=== PATIENT | female | born 1990 | race Caucasian/White ===

== ENCOUNTER 2019-03-06 06:33 | Inpatient (IN) ==
--- NOTE | 2019-03-01 17:49 | History & Physical Report ---
Date of Service March 01, 2019 Assessment & Plan (1) History of delivery, antepartum: We will plan for repeat section with tubal sterilization. I have discussed informed consent with patient in the office. Options have been answered. Reviewed risks including bleeding, scarring, damage to surrounding tissue. Risk of blood clots or pulmonary complications. Risk of anesthesia. Risk after tubal sterilization of approximately 2-3 per thousand. Risk of tubal regret syndrome. She elects to proceed. She would like, if possible to use the clear drape during section, she would like father baby to announce the sex of the baby, I would like to do skin to skin as soon as possible. History of Present Illness Chief Complaint: Repeat section Primary Care Provider: Marshall Anthony Capp, DO Patient is a 28-year-old -0-0-2 with EDC 03/09/2019. She has a history of section x2. Her is complicated by a questionable two-vessel cord, as meter and service line inspector saw a vessel on either side of the bladder but only 2 vessels in the umbilical cord. We have treated her as if this is a two-vessel cord with echo, serial growth ultrasounds, nonstress test. She also desires permanent tubal sterilization. Allergies Allergy/AdvReac Type Severity Reaction Status Date / Time Penicillins Allergy Mild RASH AND Verified 02/28/19 10:28 ITCHING clindamycin Allergy Unknown Rash Verified 02/28/19 10:28 Sulfa (Sulfonamide Allergy Unknown Rash Verified 02/28/19 10:28 Antibiotics) Home Medications Home Medications Medication Instructions Recorded Confirmed Type prenat.vits,randy,[id number] 1 tab PO HS 11/02/18 02/28/19 History loratadine 10 mg tablet 10 mg PO HS 01/13/19 02/28/19 History albuterol sulfate 90 mcg/actuation 1 puffs INH Q6H PRN 01/27/19 02/28/19 History aerosol inhaler Iron Glycinate 1 tab PO HS 02/27/19 02/28/19 History acetaminophen [Tylenol Extra 500 mg PO Q6H PRN 02/27/19 02/28/19 History Strength] ranitidine HCl [Zantac] 150 mg PO HS 02/27/19 02/28/19 History Patient History Medical History (Updated 02/27/19 @ 08:43 by Janine Christianson RN) GERD (gastroesophageal reflux disease) History of decreased movements History of joint pain both knees History of prolonged History of varicella vaccination 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, antepartum UTI (urinary tract infection) Social History Preferred Language: American Communication Ability: Effective Enrollment Processor Required: No Beliefs That Will Affect Care: None marital status: Current Living Situation: Spouse and Family Current Living Situation Comment: spouse and children Feels Safe at Home: Yes Smoking Status: Never smoker Second Hand Exposure: No ; Hx Alcohol Use: Yes Alcohol type: beer, wine and other Hx Substance Use: No Review of Systems All systems reviewed & are unremarkable except as noted in HPI & below Physical Exam Constitutional: WD/WN, vitals as above Respiratory: normal respiratory effort, lungs clear to auscultation no respiratory distress Cardiovascular: Rate/Rhythm: regular rate and regular rhythm Gastrointestinal (Abdomen): Inspection/Auscultation: abdomen normal to inspection Percussion/Palpation: abdomen soft; abdomen nontender Gravid. No s/s chorio or abruption. Skin: no rashes, warm and dry Psychiatric: A+Ox3, euthymic affect
[~2019-03-06 06:33] MED LIST: CEFAZOLIN 3,000 MG in DEXTROSE 5% 50 ML IV SCH; CITRIC ACID/SODIUM CITRATE 15 ML UDC PO SCH; LACTATED RINGER'S 1,000 ML IV SCH
[2019-03-06 07:18] LABS: Basophils # (auto) 0.04 K/uL (0-0.2); Basophils % (auto) 0.4 %; Eosinophils # (auto) 0.16 K/uL (0-0.5); Eosinophils % (auto) 1.7 %; Hematocrit (blood only) 39.2 % (37-47); Hemoglobin 13.4 g/dL (12.0-16.0); Immature Granulocytes # (auto) 0.19 K/uL (0.00-0.02); Lymphocytes % (auto) 24.7 %; Mean Corpuscular Hemoglobin 29.5 pg (25-34); Mean Corpuscular Volume 86.2 fL (80-100); Mean Platelet Volume 9.5 fL (7.4-10.4); Monocytes # (auto) 1.02 K/uL (0.11-0.59); Neutrophils % (auto) 60.2 %; Platelet Count 280 K/uL (130-400); RDW Coefficient of Variation 13.2 % (11.5-14.5); RDW Standard Deviation 41.1 fL (36.4-46.3); Red Blood Count 4.55 M/uL (4.2-5.4); White Blood Count 9.31 K/uL (4.8-10.8)
[2019-03-06 07:24] LABS: Mean Corpuscular Hgb Conc 34.2 g/dL (32-36)
[2019-03-06] MEDS ORDERED: LACTATED RINGER'S 1,000 ML IV SCH ×3 (08:15→15:00)
--- NOTE | 2019-03-06 09:04 | History & Physical Bridge Note ---
Date of Service March 06, 2019 History & Physical Bridge Note I have examined the patient, reviewed the History & Physical and in the interval since the performance of the History & Physical I have noted the following changes of clinical significance: no changes noted
[2019-03-06] MEDS ORDERED: OXYTOCIN 10 UNITS/ML VIAL ONE (09:37)
[2019-03-06] MEDS ORDERED: fentaNYL citrate 100 MCG/2 ML VIAL ONE (09:37)
[2019-03-06] MEDS ORDERED: MoRPHine SULFATE PF 1 MG/ML 10 ML AMP/VIAL ONE (09:37)
[2019-03-06] MEDS ORDERED: HYDROmorphone INJ 0.5 MG/0.5 ML SYR IV PRN (09:52)
[2019-03-06] MEDS ORDERED: ONDANSETRON INJ 2 MG/ML 2 ML VIAL IV PRN (09:52)
[2019-03-06] MEDS ORDERED: DiphenhydrAMINE HCL 50 MG/ML VIAL IV PRN (09:52)
[2019-03-06] MEDS ORDERED: NALOXONE HCL 1 MG in SODIUM CHLORIDE 0.9% 1000ML 1,000 ML IV PRN (09:52)
[2019-03-06] MEDS ORDERED: ePHEDrine sulfate 50 MG/ML AMP IV PRN (09:52)
[2019-03-06] MEDS ORDERED: LACTATED RINGER'S 500 ML IV PRN (09:52)
[2019-03-06] MEDS ORDERED: NALOXONE HCL 0.08 MG in SYRINGE 1.8 ML IV PRN (09:52)
[2019-03-06] MEDS ORDERED: MoRPHine SULFATE PF 1 MG/ML 10 ML AMP/VIAL INT SPINAL ONE (09:52)
[2019-03-06] MEDS ORDERED: NALOXONE HCL 0.4 MG/1 ML VIAL/CARP IV PRN (09:52)
[2019-03-06] MEDS ORDERED: NALBUPHINE HCL INJ 10 MG/ML AMP IV PRN (09:52)
--- NOTE | 2019-03-06 09:52 | Anesthesiology Consultation ---
Date of Service March 06, 2019 Assessment & Plan ASA ASA2 Proposed Anesthesia Anesthesia Type: Spinal Risk / Benefits Reviewed With: PT / POA / Parent / Guardian, Accepts Plan and Informed Consent Obtained History Surgery Operation Date: 03/06/19 09:10 Proposed Procedures p Section, with - Anette Sorto DO s Post Tubal Ligation - Anette Sorto DO Height/Weight Height: 5 ft 4.5 in Weight: 103.419 kg Allergies Allergy/AdvReac Type Severity Reaction Status Date / Time Penicillins Allergy Mild RASH AND Verified 02/28/19 10:28 ITCHING clindamycin Allergy Unknown Rash Verified 02/28/19 10:28 Sulfa (Sulfonamide Allergy Unknown Rash Verified 02/28/19 10:28 Antibiotics) Medications Home Medications Medication Instructions Recorded Confirmed Last Taken prenat.vits,randy,[id number] 1 tab PO HS 11/02/18 03/06/19 03/05/19 23:00 1 loratadine 10 mg tablet 10 mg PO HS 01/13/19 03/06/19 03/05/19 23:00 1 albuterol sulfate 90 mcg/actuation 1 puffs INH Q6H PRN 01/27/19 03/06/19 02/03/19 21:00 aerosol inhaler 1 Iron Glycinate 1 tab PO HS 02/27/19 03/06/19 03/04/19 22:00 1 acetaminophen [Tylenol Extra 500 mg PO Q6H PRN 02/27/19 03/06/19 02/27/19 21:00 Strength] ranitidine HCl [Zantac] 150 mg PO HS 02/27/19 03/06/19 03/05/19 23:00 1 NPO Date Last Intake of Fluids: 03/06/19 Time Last Intake of Fluids: 00:00 Date Last Intake of Solids: 03/06/19 Time Last Intake of Solids: 00:00 Past Medical History Medical History GERD (gastroesophageal reflux disease) History of decreased movements History of joint pain both knees History of prolonged History of varicella vaccination 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, antepartum UTI (urinary tract infection) Exercise / Class Metabolic Activity II 4-5 Yardwork/Stairs/Walk up hill Past Family History Family History Aunt Diabetes maternal Mother Endometriosis Grandmother (Maternal) Hypertension Grandfather (Paternal) Prostate cancer Daughter Heart murmur Past Surgical History Surgical History History of low transverse section x 2, extension for 6cm into vagina Past Anesthesia History No Hx of Anesthesia Complications and No Family Hx of Anesthesia Complications History of PONV No Hx of PONV and No Hx of Motion Sickness Social History Smoking Status: Never smoker Do You Dip or Chew Tobacco: No Hx Alcohol Use: No Alcohol type: beer, wine and other alcohol intake frequency: a few times a month Alcohol Intake Frequency Comment: NONE Hx Substance Use: No Review of Systems denies fever/cough/ colds/ chest pain/ SOB/ WILIAN denies OK/CVA/Seizure Physical Exam Vital Signs Last Vital Signs Temp 36.9 C 03/06/19 07:01 Pulse 114 H 03/06/19 06:49 Resp 20 03/06/19 07:01 BP 115/76 03/06/19 06:49 ENMT Mouth: + chipped teeth; no TMJ abnormality and no dentition abnormality Thyromental Distance: > or= 3.5 Finger Breadths Mallampati Class: II Neck neck extension not limited Respiratory normal respiratory effort; no respiratory distress Auscultation: lungs clear to auscultation bilaterally Cardiovascular Rate/Rhythm: regular rate and regular rhythm Neurologic moves all extremities Psychiatric Orientation: alert and oriented x 3 Testing Laboratory Results 03/06/19 06:58 Blood Type O Positive 03/06/19 06:56 Antibody Screen NEGATIVE 03/06/19 06:56
[2019-03-06] MEDS ORDERED: DC INTRASPINAL MORPHINE SCH (10:00)
[2019-03-06] MEDS ORDERED: SODIUM CHLORIDE 0.9% 1000ML 1,000 ML IV SCH (10:00)
[2019-03-06] MEDS ORDERED: NO NARCOTICS OR SEDATIVES SCH (10:00)
[2019-03-06] MEDS ORDERED: ePHEDrine sulfate 50 MG/ML SYR ONE (11:03)
[2019-03-06] MEDS ORDERED: PHENYLEPHRINE 100MCG/ML 5ML SYR ONE (11:03)
[2019-03-06] MEDS ORDERED: KETOROLAC 30 MG/ML VIAL ONE ×3 (11:39→13:20)
[2019-03-06 11:53] LABS: Base Excess Cord Venous Blood -1.2 mEq/L (-7.7-1.9); Cord Venous Blood HCO3 25 mmol/L (18.4-26.8); Cord Venous Blood PCO2 45 mmHg (30.4-57.2); Cord Venous Blood PO2 22 mmHg (14.1-43.3); Cord Venous Blood pH 7.36 (7.20-7.44)
[2019-03-06 11:54] LABS: O2 Saturation Cord Venous Bld < 60.0 % (<68)
--- NOTE | 2019-03-06 12:44 | Operative Report ---
PG Post Operative Report Pre & Post Diagnosis Operation Date: 03/06/19 09:10 Pre-Op Diagnosis: PREVIOUS SECTION, DESIRES STERILIZATION Post-Op Diagnosis: PREVIOUS SECTION, DESIRES STERILIZATION; LOW TRANSVERSE SECTION WITH T EXTENSION; DELIVERY OF LIVE FEMALE AT 1119; BILATERAL TUBAL LIGATION I identified the patient and participated in the time-out.: Yes Procedure Operation Date: 03/06/19 09:10 Actual Procedures p Low Transverse Section with T-extension, with - Anette Sorto DO s Tubal Ligation - Anette Sorto DO Surgeon Anette Sorto, Treasury Accountant Henrique Smith MD PGY1 Estimated Blood Loss 700 Findings Consistent with Post-Op Diagnosis Viable female , Apgars 8/9 Weight 7#3.6oz. Double hand presentation at uterine incision, requiring T-extension to retract hands and deliver baby from cephalic presentation Specimens Placenta, cord gas, cord blood. Drains stevens catheter, clear yellow Anesthesia Type Spinal Complications none Disposition Accompanied Patient To Recovery: Yes Disposition: L&D Indications 28yo @ 39 4/7 with h/o section x 2, desire for tubal sterilization Description of Procedure The patient was seen in the preoperative holding area, risks benefits and alternatives to surgery were reviewed. Questions were answered. She previously signed informed consent under no duress in the office. She elected to proceed with the case. She was taken to the operating room, spinal anesthesia was administered. She is prepared and draped in the usual sterile fashion in the supine position with a leftward tilt. Anesthesia was found to be adequate. She received 3 g of Ancef preoperatively. Timeout was confirmed. The Pfannenstiel skin incision was made with a scalpel, and carried through to the underlying layer fascia. This was nicked at midline, and extended bilaterally sharply and bluntly. The superior aspect of the fascial incision was grasped with [place] clamps x2, elevated off the underlying rectus abdominis muscles, and dissected bluntly and sharply. In a similar fashion, the inferior aspect of the incision was dissected. The rectus abdominis muscles were in the regimen was entered sharply. This incision was extended bluntly. Bladder blade was placed, a bladder flap was created. A low transverse uterine incision was made with a new scalpel. This is extended bilaterally bluntly. At this point, 's hands attempted to deliver through the hysterotomy incision. In attempt to return the 's hands to the uterine cavity, the baby was rotated to a occiput anterior position to better facilitate delivery. A Kiwi vacuum was applied to the head, 2 pop offs and delivery attempts. Bandage scissors were used to extend the superior aspect of the hysterotomy incision into a T. This brought the head to the hysterotomy incision, and allow the baby to deliver from a cephalic presentation. No nuchal cord was noted. The cord was doubly clamped and cut, a segment was retained for cord gases, the infant's nose and mouth were suctioned on the field, and the baby was handed off to the waiting refinery technician. Placenta was delivered spontaneously intact, and will be sent to pathology for further evaluation. Uterus was then exteriorized and cleared of clots and debris. The T extension was reapproximated using 3 layers of 0 Vicryl. The first layer incorporating the innermost 50% of the myometrium, the second layer the outer 50% of the myometrium, and the third layer as a baseball stitch reapproximating uterine serosa. Next, the hysterotomy incision was reapproximated using 0 Vicryl in a running locked stitch. A second layer of the same suture was used to imbricate the incision. Multiple [id number] sutures of 0 Vicryl and 2-0 Vicryl were used to obtain hemostasis. There were multiple hyper vascularized areas of the uterus that required multiple stitches to obtain hemostasis. The posterior uterus was inspected, found to be normal. The bilateral tubal ligation was performed using Filshie clips, due to the thickness of the tube, I do not feel that the first clip really grasp the entirety of the tube, therefore I placed a second Filshie clip on each fallopian tube. The uterus was placed back inside the abdomen, and no active bleeding areas were noted, however due to multiple small areas of oozing, Robin powder was used and pressure applied. Hemostasis was observed with this. A large piece of Gelfoam was then placed into the cavity over top of the hysterotomy incision to further aid with hemostasis. Gutters were cleared of clots and debris. The fascial incision was reapproximated using 0 Vicryl in a running stitch. This was started at each apex and carried to the midline. The subcutaneous tissue was irrigated, and reapproximated with 2-0 plain gut suture in a single running stitch. The skin was reapproximated using 4-0 Vicryl in a running subcuticular stitch. Patient tolerated the procedure well, was taken to recovery area in stable good condition. I attest to the content of the Intraoperative Record and any orders documented therein. Any exceptions are noted below.
[2019-03-06] MEDS ORDERED: KETOROLAC 30 MG/ML VIAL IV PRN (13:21)
--- NOTE | 2019-03-06 14:09 | Anesthesiology Progress Note ---
Date of Service March 06, 2019 Anesthesia Post Procedure Vital Signs Vital Signs: Temp Pulse Pulse Resp BP Pulse Ox 03/06/19 14:03 100 H 98 03/06/19 13:58 90 99 03/06/19 13:53 93 H 98 03/06/19 13:48 93 H 99 03/06/19 13:43 91 H 98 03/06/19 13:39 86 135/68 03/06/19 13:38 93 H 98 03/06/19 13:33 86 97 03/06/19 13:29 87 121/69 03/06/19 13:28 90 97 03/06/19 13:23 106 H 97 03/06/19 13:19 93 H 129/79 03/06/19 13:18 98 H 97 03/06/19 13:13 92 H 96 03/06/19 13:10 109 H 92 03/06/19 13:09 99 H 121/67 03/06/19 13:08 98 H 100 03/06/19 13:03 96 H 99 03/06/19 12:59 85 115/59 L 03/06/19 12:58 94 H 98 03/06/19 12:57 89 93 03/06/19 12:53 94 H 100 03/06/19 12:49 82 110/61 03/06/19 12:48 88 98 03/06/19 12:43 90 98 03/06/19 12:39 36.3 C L 97 H 97 H 20 117/66 99 03/06/19 07:01 36.9 C 20 03/06/19 06:49 114 H 115/76 Pain Intensity Lower Abdomen: Pain Intensity: 0 Transfer of Care Handoff Completed per policy Notes Mental Status: alert / awake / arousable and participated in evaluation Patient Amnestic to Procedure: Yes Nausea / Vomiting: adequately controlled Pain: adequately controlled Airway Patency, RR, SpO2: stable & adequate BP & HR: stable & adequate Hydration State: stable & adequate Neuraxial Anesthesia: was administered and sensory block is resolving Anesthetic Complications: no major complications apparent and Pt Satisfied with anesthetic care
[2019-03-06] MEDS ORDERED: ALBUTEROL HFA 8 GM INHALER INH PRN (14:33)
[2019-03-06] MEDS ORDERED: BENZOCAINE 20% AER SPR 82.5 GM CAN EXT PRN (14:33)
[2019-03-06] MEDS ORDERED: SUPERCREAM 0.870% 15 GM JAR EXT PRN (14:33)
[2019-03-06] MEDS ORDERED: MAGNESIUM HYDROXIDE SUSP 30 ML UDC PO PRN (14:33)
[2019-03-06] MEDS ORDERED: HYDROCORTISONE ACETATE 25 MG SUPP PR PRN (14:33)
[2019-03-06] MEDS ORDERED: DIPHTHERIA/TETANUS/PERTUSSIS 0.5 ML SYR/VIAL IM ONE (14:33)
[2019-03-06] MEDS ORDERED: ACETAMINOPHEN 1,000 MG/100 ML VIAL IV PRN (14:57)
[2019-03-06 15:03] LABS: Hematocrit (blood only) 35.5 % (37-47)
[2019-03-06 15:09] LABS: Base Excess VBG -1.4 mEq/L; pH VBG 7.44 (7.36-7.41)
[2019-03-06] MEDS: OXYTOCIN 30 UNITS in LACTATED RINGER'S 1,000 ML IV SCH ×2 (15:21→23:43)
[2019-03-06] MEDS: SIMETHICONE 80 MG CHEW PO SCH ×2 (18:31→20:37)
[2019-03-06] MEDS: LORATADINE 10 MG TAB PO SCH (20:37)
[2019-03-06] MEDS: DOCUSATE SODIUM 100 MG CAP PO SCH (20:37)
[2019-03-07] MEDS ORDERED: KETOROLAC 30 MG/ML VIAL IV PRN (03:52)
[2019-03-07] MEDS ORDERED: ONDANSETRON INJ 2 MG/ML 2 ML VIAL IV PRN (03:52)
[2019-03-07] MEDS ORDERED: PROMETHAZINE HCL 25 MG in SODIUM CHLORIDE 0.9% 50 ML IV PRN (03:52)
[2019-03-07] MEDS ORDERED: DiphenhydrAMINE HCL 50 MG/ML VIAL IV PRN (03:52)
--- NOTE | 2019-03-07 04:13 | Obstetrical Progress Note ---
Date of Service March 07, 2019 Subjective Patient is awake in room . Feels like she has a slight cough, no chest pain. She has not been coughing, even though she feels she needs to, as she is worried about it hurting her incision. Otherwise, she states she feels well. Pulse is tachycardic, 120. BP is 94/57. Temp 37.9. O2 saturation 99%. Incision is bandaged, clean/dry. Lung sounds clear. Abdomen soft. Urine output 900cc over 9 hours, somewhat concentrated. Will obtain stat CBC with diff at this time. Patient will also use incentive spirometer - encouraged her to hold pillow to abdomen to cough. Results & Data Vital Signs (Past 12 Hours) Vital Signs Temp Pulse Resp BP Pulse Ox 03/07/19 00:00 18 96 03/06/19 23:35 37.3 C 118 H 18 108/60 96 03/06/19 23:00 18 96 03/06/19 22:00 18 98 03/06/19 21:00 18 100 03/06/19 20:42 36.7 C 114 H 18 117/71 100 03/06/19 20:00 18 100 03/06/19 19:00 20 98 03/06/19 18:00 20 98 03/06/19 17:00 20 98 PG Care Time/CCT Total # of Minutes Spent Total Time Spent with Patient: Total time spent is greater than 50% in coordination of care (as documented) at patient's floor/unit and/or counseling patient:
[2019-03-07 04:37] LABS: Basophils # (auto) 0.02 K/uL (0-0.2); Basophils % (auto) 0.1 %; Eosinophils # (auto) 0.02 K/uL (0-0.5); Eosinophils % (auto) 0.1 %; Hematocrit (blood only) 30.6 % (37-47); Hemoglobin 10.4 g/dL (12.0-16.0); Immature Granulocytes % (auto) 0.6 %; Lymphocytes # (auto) 1.56 K/uL (1.2-3.4); Mean Corpuscular Hemoglobin 29.5 pg (25-34); Mean Corpuscular Volume 86.9 fL (80-100); Monocytes # (auto) 1.35 K/uL (0.11-0.59); Monocytes % (auto) 8.7 %; Neutrophils # (auto) 12.51 K/uL (1.4-6.5); Neutrophils % (auto) 80.5 %; Platelet Count 214 K/uL (130-400); RDW Coefficient of Variation 13.4 % (11.5-14.5); RDW Standard Deviation 42.4 fL (36.4-46.3); Red Blood Count 3.52 M/uL (4.2-5.4); White Blood Count 15.56 K/uL (4.8-10.8)
--- NOTE | 2019-03-07 05:45 | Obstetrical Progress Note ---
Date of Service <Henrique Smith MD - Last Filed: 03/07/19 07:29> March 07, 2019 Assessment & Plan <Henrique Smith MD - Last Filed: 03/07/19 07:29> (1) : s/p RLTCS PPD #1 concern for hypovolemia given tachycardia, hypotensive, with trending down hgb continue to monitor H/H throughout the day ambulate as tolerated continue IV fluids until patient has improved PO intake after discharge will have follow-up with Dr. Sorto in 6 weeks Subjective <Henrique Smith MD - Last Filed: 03/07/19 07:29> Ms. Resendiz is a 28 y/o female ; POD #1 following delivery at 39+ weeks; doing well this morning; having abdominal pain with all motion; voiding well; did not have meals overnight, or ambulate around room Review of Systems Constitutional: denies fever; chills; sweats; headache Respiratory: denies shortness of breath, difficulty breathing Cardiac: denies typical chest pain; palpitations; Breast: denies breast pain : denies dysuria Physical Exam <Henrique Smith MD - Last Filed: 03/07/19 07:29> General: alert; oriented; no acute distress Cardiac: RRR; no m/g/r Respiratory: CTAB a/p; no wheezes/rales/rhonchi; no increased work of breathing; symmetrical chest rise; no respiratory distress Abdomen: soft; bowel sounds positive; incision warm/dry, and intact without erythema or exudate; suprapubic tenderness Uterus: uterine fundus firm; palpable 2cm below umbilicus Lower extrem: no lower extremity edema or swelling; no deep calf pain; Debra's sign negative b/l Results & Data <Henrique Smith MD - Last Filed: 03/07/19 07:29> Vital Signs (Past 12 Hours) Vital Signs Temp Pulse Resp BP Pulse Ox 03/07/19 04:00 37.9 C H 120 H 18 94/57 L 98 03/07/19 03:00 18 99 03/07/19 02:00 18 97 03/07/19 01:00 18 98 03/07/19 00:00 18 96 03/06/19 23:35 37.3 C 118 H 18 108/60 96 03/06/19 23:00 18 96 03/06/19 22:00 18 98 03/06/19 21:00 18 100 03/06/19 20:42 36.7 C 114 H 18 117/71 100 03/06/19 20:00 18 100 03/06/19 19:00 20 98 03/06/19 18:00 20 98 Laboratory Results 03/07/19 03/06/19 03/06/19 Range/Units 04:24 14:47 14:47 WBC 15.56 H (4.8-10.8) K/uL RBC 3.52 L (4.2-5.4) M/uL Hgb 10.4 L 12.0 (12.0-16.0) g/dL Hct 30.6 L 35.5 L (37-47) % MCV 86.9 (80-100) fL MCH 29.5 (25-34) pg MCHC 34.0 (32-36) g/dL RDW Std Deviation 42.4 (36.4-46.3) fL RDW Coeff of Torin 13.4 (11.5-14.5) % Plt Count 214 (130-400) K/uL MPV 9.0 (7.4-10.4) fL Immature Gran % (Auto) 0.6 % Neut % (Auto) 80.5 % Lymph % (Auto) 10.0 % [place] % (Auto) 8.7 % Eos % (Auto) 0.1 % Baso % (Auto) 0.1 % Immature Gran # (Auto) 0.10 H (0.00-0.02) K/uL Neut # (Auto) 12.51 H (1.4-6.5) K/uL Lymph # (Auto) 1.56 (1.2-3.4) K/uL [place] # (Auto) 1.35 H (0.11-0.59) K/uL Eos # (Auto) 0.02 (0-0.5) K/uL Baso # (Auto) 0.02 (0-0.2) K/uL VBG pH 7.44 H (7.36-7.41) VBG pCO2 33 L (38-50) mmHg VBG pO2 61 mmHg VBG HCO3 22 mmol/L VBG O2 Saturation 91.0 % VBG Base Excess -1.4 mEq/L Cord VBG pH (7.20-7.44) Cord VBG pCO2 (30.4-57.2) mmHg Cord VBG pO2 (14.1-43.3) mmHg Cord VBG HCO3 (18.4-26.8) mmol/L Cord VBG Base Excess (-7.7-1.9) mEq/L Cord VBG O2 Sat (<68) % Barometric Pressure 724.7 mm/Hg Blood Gas Comments Blood Type Antibody Screen 03/06/19 03/06/19 03/06/19 Range/Units 11:19 06:58 06:56 WBC 9.31 (4.8-10.8) K/uL RBC 4.55 (4.2-5.4) M/uL Hgb 13.4 (12.0-16.0) g/dL Hct 39.2 (37-47) % MCV 86.2 (80-100) fL MCH 29.5 (25-34) pg MCHC 34.2 (32-36) g/dL RDW Std Deviation 41.1 (36.4-46.3) fL RDW Coeff of Torin 13.2 (11.5-14.5) % Plt Count 280 (130-400) K/uL MPV 9.5 (7.4-10.4) fL Immature Gran % (Auto) 2.0 % Neut % (Auto) 60.2 % Lymph % (Auto) 24.7 % [place] % (Auto) 11.0 % Eos % (Auto) 1.7 % Baso % (Auto) 0.4 % Immature Gran # (Auto) 0.19 H (0.00-0.02) K/uL Neut # (Auto) 5.60 (1.4-6.5) K/uL Lymph # (Auto) 2.30 (1.2-3.4) K/uL [place] # (Auto) 1.02 H (0.11-0.59) K/uL Eos # (Auto) 0.16 (0-0.5) K/uL Baso # (Auto) 0.04 (0-0.2) K/uL VBG pH (7.36-7.41) VBG pCO2 (38-50) mmHg VBG pO2 mmHg VBG HCO3 mmol/L VBG O2 Saturation % VBG Base Excess mEq/L Cord VBG pH 7.36 (7.20-7.44) Cord VBG pCO2 45 (30.4-57.2) mmHg Cord VBG pO2 22 (14.1-43.3) mmHg Cord VBG HCO3 25 (18.4-26.8) mmol/L Cord VBG Base Excess -1.2 (-7.7-1.9) mEq/L Cord VBG O2 Sat < 60.0 (<68) % Barometric Pressure 724.4 mm/Hg Blood Gas Comments DAVE Blood Type O Positive Antibody Screen NEGATIVE <Anette Sorto DO - Last Filed: 03/07/19 08:23> Co-Signing Physician Notes Resident Physician Supervision Note: I was present with Dr. Smith during the history and exam. I discussed the case with the resident and agree with the findings and plan as documented in the note. Any exceptions or clarifications are listed here: POD#1. Awake, feeling well. Urine output has been adequate, but concentrated-appearing. This has improved in color since IV fluid bolus given early this morning. BP has improved, pulse still tachycardic. Awaiting H/H this morning. Respirations and pulse ox remain normal. Documented By: Anette Sorto DO Resident Activity Tracking <Henrique Smith MD - Last Filed: 03/07/19 07:29> Resident Involvement: Resident Care Provided Care Provided: OB Delivery
[2019-03-07] MEDS ORDERED: CITRIC ACID/SODIUM CITRATE 15 ML UDC PO SCH (06:00)
[2019-03-07] MEDS ORDERED: LACTATED RINGER'S 500 ML IV ONE (06:08)
--- NOTE | 2019-03-07 06:09 | Obstetrical Progress Note ---
Date of Service March 07, 2019 Subjective Patient feeling ok - awake, talking. No bleeding at incision site or per vagina. Has not been out of bed yet. Pulse remains tachycardic, BP is low. Hgb at 4:24a was 10.4 (down from 13.4 prior to CS). Has had adequate urine output overnight, but this is concentrated. Will plan for repeat Hgb at 8a. Will give IV fluid bolus, as this could be dehydration combined with volume loss. Will keep stevens in place to monitor urine output and will recheck in 1 hour. Temp is below 38 degrees, and she has not been febrile. Pulse ox is 99% on room air, do not suspect blood clot. However, if cough continues after she is up and moving, could consider CXR. Results & Data Vital Signs (Past 12 Hours) Vital Signs Temp Pulse Resp BP Pulse Ox 03/07/19 04:00 37.9 C H 120 H 18 94/57 L 98 03/07/19 03:00 18 99 03/07/19 02:00 18 97 03/07/19 01:00 18 98 03/07/19 00:00 18 96 03/06/19 23:35 37.3 C 118 H 18 108/60 96 03/06/19 23:00 18 96 03/06/19 22:00 18 98 03/06/19 21:00 18 100 03/06/19 20:42 36.7 C 114 H 18 117/71 100 03/06/19 20:00 18 100 03/06/19 19:00 20 98 PG Care Time/CCT Total # of Minutes Spent Total Time Spent with Patient: Total time spent is greater than 50% in coordination of care (as documented) at patient's floor/unit and/or counseling patient:
[2019-03-07] MEDS: PRENATAL VITAMIN 1 TAB PO SCH (08:06)
[2019-03-07] MEDS: FERROUS SULFATE 325 MG TAB PO SCH (08:07)
[2019-03-07] MEDS: DOCUSATE SODIUM 100 MG CAP PO SCH ×2 (08:07→21:24)
[2019-03-07] MEDS: SIMETHICONE 80 MG CHEW PO SCH ×4 (08:09→21:24)
[2019-03-07 08:32] LABS: Hemoglobin 10.2 g/dL (12.0-16.0)
[2019-03-07] MEDS: IBUPROFEN 600 MG TAB PO PRN ×4 (10:40→23:59)
[2019-03-07] MEDS: OXYCODONE/ACETAMINOPHEN 5mg/325mg TAB PO PRN ×2 (19:35→23:59)
[2019-03-07] MEDS ORDERED: bisacodyL 5 MG TABEC PO SCH (20:00)
[2019-03-07] MEDS: LORATADINE 10 MG TAB PO SCH (21:24)
--- NOTE | 2019-03-08 06:14 | Obstetrical Progress Note ---
Date of Service <Henrique Smith MD - Last Filed: 03/08/19 07:02> March 08, 2019 Assessment & Plan <Henrique Smith MD - Last Filed: 03/08/19 07:02> (1) : s/p RLTCS P0D #2 ambulating well, tolerating meals, voiding well continue routine care until discharge after discharge will have follow-up with Dr. Sorto in 6 weeks Subjective <Henrique Smith MD - Last Filed: 03/08/19 07:02> Ms. Resendiz is a 28 y/o female ; POD #2 following delivery at 39+ weeks; doing well this morning; having abdominal pain with all motion; voiding well; did not have meals overnight, or ambulate around room Review of Systems Constitutional: denies fever; chills; sweats; headache Respiratory: denies shortness of breath, difficulty breathing Cardiac: denies chest pain; palpitations; chest pressure Breast: denies breast pain : denies dysuria Physical Exam <Henrique Smith MD - Last Filed: 03/08/19 07:02> General: alert; oriented; no acute distress Cardiac: RRR; no m/g/r Respiratory: CTAB a/p; no wheezes/rales/rhonchi; no increased work of breathing; symmetrical chest rise; no respiratory distress Abdomen: soft; NT/ND; bowel sounds positive Uterus: uterine fundus firm; palpable 3cm below umbilicus Lower extrem: no lower extremity edema or swelling; no deep calf pain; Debra's sign negative b/l Results & Data <Henrique Smith MD - Last Filed: 03/08/19 07:02> Vital Signs (Past 12 Hours) Vital Signs Temp Pulse Resp BP Pulse Ox 03/08/19 04:55 92 H 100/65 03/07/19 23:20 36.6 C 101 H 16 124/78 98 03/07/19 19:25 36.9 C 114 H 18 105/69 Laboratory Results 03/08/19 03/07/19 Range/Units 06:15 08:14 Hgb 9.1 L 10.2 L (12.0-16.0) g/dL Hct 27.6 L 30.0 L (37-47) % Medications Administered Current Inpatient Medications Albuterol (Ventolin Hfa) 1 puffs INH Q6H PRN PRN Reason: Wheezing Stop: 04/05/19 14:32 Benzocaine (Dermoplast Pain Relieving Washam) 1 appln EXT UD PRN PRN Reason: use on skin as needed Stop: 04/05/19 14:32 Bisacodyl (Dulcolax) 10 mg MS PRN PRN PRN Reason: Constipation Stop: 04/07/19 12:19 Cocaine HCl (Supercream 0.870%) 1 gm EXT UD PRN PRN Reason: hemmorrhoidal inflammation Stop: 03/20/19 14:32 Diphenhydramine HCl (Benadryl Capsule) 25 mg PO QID PRN PRN Reason: Itching Stop: 04/06/19 03:51 Diphenhydramine HCl (Benadryl) 25 mg IV QID PRN PRN Reason: Itching Stop: 04/06/19 03:51 Docusate Sodium (Colace) 100 mg PO DAILY@08,21 [facility] Stop: 04/05/19 20:59 Last Admin: 03/07/19 21:24 Dose: 100 mg Documented by: Ferrous Sulfate (Feosol) 325 mg PO DAILY@08 [facility] Stop: 04/06/19 07:59 Last Admin: 03/07/19 08:07 Dose: 325 mg Documented by: Hydrocortisone (Anusol Hc) 25 mg MS BID PRN PRN Reason: Hemorrhoids Stop: 04/05/19 14:32 Lactated Ringer's (Lr) 1,000 mls @ 125 mls/hr IV .Q8H RAFAEL Stop: 04/05/19 14:59 Last Infusion: 03/07/19 11:45 Dose: 0 mls/hr Documented by: Promethazine HCl 25 mg/ Sodium (Chloride) 51 mls @ 204 mls/hr IV Q4H PRN PRN Reason: Nausea And Vomiting Stop: 04/06/19 03:51 Acetaminophen (Ofirmev) 1,000 mg in 100 mls @ 400 mls/hr IV Q8H PRN PRN Reason: Moderate Pain Stop: 03/09/19 14:56 Ibuprofen (Motrin) 600 mg PO Q4H PRN PRN Reason: Pain Stop: 04/05/19 14:32 Last Admin: 03/07/19 23:59 Dose: 600 mg Documented by: Ketorolac Tromethamine (Toradol) 30 mg IV Q6H PRN PRN Reason: Pain Stop: 03/12/19 03:51 Last Admin: 03/07/19 07:28 Dose: 30 mg Documented by: Loratadine (Claritin) 10 mg PO HS [facility] Stop: 04/05/19 20:59 Last Admin: 03/07/19 21:24 Dose: 10 mg Documented by: Magnesium Hydroxide (Milk Of Magnesia) 30 ml PO HS PRN PRN Reason: Constipation Stop: 04/05/19 14:32 Ondansetron HCl (Zofran) 4 mg IV Q4H PRN PRN Reason: Nausea And Vomiting Stop: 04/06/19 03:51 Oxycodone/Acetaminophen (Percocet 5mg/325mg) 1 - 2 tab PO Q4H PRN PRN Reason: Pain Stop: 03/21/19 03:51 Last Admin: 03/07/19 23:59 Dose: 1 tab Documented by: Prenat Multivit/[place]/Iron/Folic Ac ( Vitamin) 1 tab PO DAILY@08 [facility] Stop: 04/06/19 07:59 Last Admin: 03/07/19 08:06 Dose: 1 tab Documented by: Ranitidine HCl (Zantac) 150 mg PO HS [facility] Stop: 04/05/19 20:59 Last Admin: 03/07/19 21:24 Dose: 150 mg Documented by: Simethicone (Mylicon) 80 mg PO DAILY@08,13,17,21 [facility] Stop: 04/05/19 14:32 Last Admin: 03/07/19 21:24 Dose: 80 mg Documented by: <Glenna Chi MD, FACOG - Last Filed: 03/08/19 08:06> Co-Signing Physician Notes Resident Physician Supervision Note: I interviewed and examined the patient. Discussed with Dr. Smith and agree with findings and plan as documented in the note. Any exceptions or clarifications are listed here:Patient is requesting script for ranitidine but since it is unavailable now, she will try omeprazole instead. Documented By: Glenna Chi MD, FACOG Resident Activity Tracking <Henrique Smith MD - Last Filed: 03/08/19 07:02> Resident Involvement: Resident Care Provided Care Provided: OB Delivery
[2019-03-08 06:37] LABS: Hematocrit (blood only) 27.6 % (37-47); Hemoglobin 9.1 g/dL (12.0-16.0)
[2019-03-08] MEDS: SIMETHICONE 80 MG CHEW PO SCH ×2 (08:31→12:51)
[2019-03-08] MEDS: IBUPROFEN 600 MG TAB PO PRN ×2 (08:31→12:52)
[2019-03-08] MEDS: DOCUSATE SODIUM 100 MG CAP PO SCH (08:32)
[2019-03-08] MEDS: FERROUS SULFATE 325 MG TAB PO SCH (08:32)
[2019-03-08] MEDS: PRENATAL VITAMIN 1 TAB PO SCH (08:32)
[2019-03-08] MEDS: OXYCODONE/ACETAMINOPHEN 5mg/325mg TAB PO PRN ×2 (08:32→12:51)
[2019-03-08] MEDS ORDERED: bisacodyL 10 MG SUPP PR PRN (12:20)
--- NOTE | 2019-03-09 18:45 | Discharge Summary ---
Date of Service March 09, 2019 Admission HPI Per Admitting Provider Patient is a 28-year-old -0-0-2 with EDC 03/09/2019. She has a history of section x2. Her is complicated by a questionable two-vessel cord, as railroad firer saw a vessel on either side of the bladder but only 2 vessels in the umbilical cord. We have treated her as if this is a two-vessel cord with echo, serial growth ultrasounds, nonstress test. She also desires permanent tubal sterilization. Discharge Data Consultations 03/06/19 08:09 Consult Anesthesiology Stat Procedures Performed Operation Date: 03/06/19 09:10 Actual Procedures p Section, with - Anette Sorto DO s Post Tubal Ligation - Anette Sorto DO Hospital Course (1) : Admitted for scheduled repeat section with bilateral tubal ligation. Routine postop care, discharged home POD#2. Followup 6w in office. Please see patient chart for additional information.
== END 2019-03-08 16:59 | disposition home or self-care (01) | DRG 785 ==
LOC: 4S1 06:33 → EDSTATUS 08:50 → 4S2 15:13
PROC: M.PPTLD (2019-03-06 09:10)